=== PATIENT | female | born 1975 | race Caucasian/White ===

== ENCOUNTER 2024-03-03 11:56 | Emergency (ER) | payer OTHER ==
[~2024-03-03] VITALS: Ht 175.3 cm; Wt 81.7 kg
[2024-03-03] MEDS ORDERED: Fluorescein Sod 1MG Opth Strips XX ONE (13:00)
[2024-03-03] MEDS ORDERED: Tetracaine HCl/Pf 0.5% Opth Soln 4 ml XX ONE (13:00)
[2024-03-03] MEDS ORDERED: POLYTRIM EYE DR10 M1 RIGHTEYE (13:56)
== END 2024-03-03 14:00 | disposition home or self-care (01) ==
LOC: ER 11:56
DX: H00.011 Hordeolum externum right upper eyelid (principal); H00.014 Hordeolum externum left upper eyelid; H10.9 Unspecified conjunctivitis
CPT/HCPCS: 99282

== ENCOUNTER 2024-12-15 13:26 | Emergency (ER) | payer OTHER ==
[~2024-12-15] VITALS: Ht 175.3 cm; Wt 74.8 kg
[~2024-12-15 13:26] MED LIST: POLYTRIM EYE DR10 M1 RIGHTEYE
[2024-12-15 14:16] LABS: BASOPHILS ABSOLUTE AUTO 0.03 K/mm3 (0.00-0.23); BASOPHILS PERCENT AUTO 1 % (0-2); EOSINOPHILS ABSOLUTE AUTO 0.05 K/mm3 (0.00-0.68); EOSINOPHILS PERCENT AUTO 1 % (0-6); Hematocrit 37.5 % (33.0-51.0); Hemoglobin 12.3 g/dL (11.5-16.0); IMMATURE GRAN ABSOLUTE AUTO 0.00 K/mm3 (0.00-0.10); IMMATURE GRAN PERCENT AUTO 0 % (0-1); LYMPHOCYTES ABSOLUTE AUTO 2.23 K/mm3 (0.84-5.20); LYMPHOCYTES PERCENT AUTO 40 % (21-46); MONOCYTES ABSOLUTE AUTO 0.34 K/mm3 (0.16-1.47); MONOCYTES PERCENT AUTO 6 % (4-13); Mean Corpuscular HGB Conc 32.8 g/dL (31.5-36.5); Mean Corpuscular Volume 97 fL (80-100); NEUTROPHILS ABSOLUTE AUTO 2.96 K/mm3 (1.96-9.15); NEUTROPHILS PERCENT AUTO 53 % (41-73); NRBC ABSOLUTE 0.00 K/mm3 (0.00-0.02); NRBC Auto 0.0 /100 WBC (0.0-0.2); Platelet Count 169 K/mm3 (150-400); RDW Coefficient Variation 13.0 % (11.7-14.2); RDW Standard Deviation 46.4 fL (35.1-46.3)
[2024-12-15 14:27] LABS: Source, Urine Clean Catch
[2024-12-15 14:31] LABS: Bilirubin, Urine Neg (Neg); Color, Urine Yellow (P-Yellow); Glucose Qualitative, Urine Neg (Neg); Ketones, Urine Neg (Neg); Leukocyte Esterase, Urine Neg (Neg); Protein, Urine 1+ (Neg); Specific Gravity, Urine 1.015 (1.003-1.022); Urobilinogen, Urine NORM (Normal)
[2024-12-15 14:35] LABS: Alanine Aminotransfer (ALT/SGP 23.0 U/L (12-78); Albumin, Blood 3.7 g/dL (3.4-5.0); Albumin/Globulin Ratio 1.2 (0.8-1.8); Anion Gap 4.0 mmol/L (3-11); Aspartate Aminotrans (AST/SGOT 22.0 U/L (12-37); Bilirubin, Total 0.5 mg/dL (0.1-1.0); Blood Urea Nitrogen 11.0 mg/dL (8-24); CO2, Blood 30.0 mmol/L (21-32); Calcium, Blood 8.8 mg/dL (8.5-10.1); Chloride, Blood 110.0 mmol/L (98-108); Creatinine, Blood 0.68 mg/dL (0.40-1.00); Globulin, Blood 3.0 g/dL (2.2-4.0); Glucose, Blood 78.0 mg/dL (70-99); Potassium, Blood 3.7 mmol/L (3.5-5.5); Sodium, Blood 140.0 mmol/L (136-145); Total Protein, Blood 6.7 g/dL (6.4-8.2)
[2024-12-15 14:38] LABS: White Blood Cells, Urine 0-2 /hpf (0-5)
[2024-12-15] MEDS ORDERED: NS 1,000 ML IV SCH (15:30)
[2024-12-15] MEDS ORDERED: LYRICA75 M1 PO (15:44)
[2024-12-15] MEDS ORDERED: PROP10 PO (15:44)
[2024-12-15] MEDS ORDERED: Norco 5-325 Ta1 EACH PO (15:44)
[2024-12-15] MEDS ORDERED: DICLOFENAC SOD100 GM (15:45)
[2024-12-15] MEDS ORDERED: CELE200 PO (15:45)
[2024-12-15] MEDS ORDERED: DOXY100 PO (15:45)
[2024-12-15] MEDS ORDERED: REFRESH TEARS P10 ML (15:46)
[2024-12-15] MEDS ORDERED: ZYRTEC10 M2 PO (15:46)
[2024-12-15] MEDS ORDERED: TIZA4 PO (15:46)
[2024-12-15] MEDS ORDERED: SERT50 PO (15:47)
[2024-12-15] MEDS ORDERED: VITAMIN C125 MG PO (15:47)
[2024-12-15] MEDS ORDERED: TAMS.4ER PO (16:36)
== END 2024-12-15 16:56 | disposition home or self-care (01) ==
LOC: ER 13:26
PROVIDERS: Emergency Medicine
DX: N13.2 Hydronephrosis with renal and ureteral calculous obstruction (principal); Z87.442 Personal history of urinary calculi; Z79.899 Other long term (current) drug therapy
CPT/HCPCS: 74177; 80053; 81001; 83690; 84702; 84703; 85025; 86304; 99284-25; J7030; Q9967